=== PATIENT | male | born 1965 | race Caucasian/White ===

== ENCOUNTER 2020-02-17 23:44 | Inpatient (IN) ==
[2020-02-18] MEDS ORDERED: 0.9 % Sodium Chloride 1,000 ML IVC ONE (00:21)
[2020-02-18] MEDS ORDERED: Ondansetron 4 MG/2 ML VIAL IVP ONE (00:21)
[2020-02-18] MEDS ORDERED: Aspirin 81 MG TAB.CHEW PO STA (00:32)
[2020-02-18 00:48] LABS: Basophils % 0.3 %; Eosinophils % 0.2 %; Hematocrit 44.5 % (37.5-50.1); Hemoglobin 14.6 g/dL (12.9-16.9); Immature Granulocytes % 0.5 % (0-4); Immature Platelets 6.2 % (1.1-6.1); Lymphocytes # 1.4 K/mcL (0.6-4.6); Lymphocytes % 24.6 %; Mean Corpuscular HGB Conc 32.8 g/dL (31.6-35.5); Mean Corpuscular Hemoglobin 28.9 pg (28.0-33.3); Mean Corpuscular Volume 87.9 fL (83.0-100.0); Mean Platelet Volume 9.9 fL (9.4-12.4); Monocytes # 0.3 K/mcL (0.0-1.3); Monocytes % 5.4 %; Platelet Count 125 K/mcL (140-400); Red Blood Count 5.06 M/mcL (4.19-5.50); White Blood Count 5.7 K/mcL (4.3-11.1)
[2020-02-18 00:56] LABS: Neutrophils # 3.9 K/mcL (1.6-8.9)
[2020-02-18 01:05] LABS: Platelet Estimate Normal (Normal)
[2020-02-18 01:09] LABS: BUN/Creatinine Ratio 19 (6-26); Blood Urea Nitrogen 32 mg/dL (6-20); Calcium 9.2 mg/dL (8.6-10.3); Carbon Dioxide 20 mEq/L (23-29); Chloride 98 mEq/L (98-107); Glucose 123 mg/dL (70-105); Osmolality,Calculated 278 (280-300); Potassium 4.3 mEq/L (3.5-5.1); Sodium 130 mEq/L (136-145); Troponin I < 0.03 ng/mL (< 0.04); eGFR For African Americans 52 (> 60); eGFR For Non-African Americans 43 (> 60)
[2020-02-18] MEDS ORDERED: Azithromycin 500 MG in 0.9 % Sodium Chloride 250 ML IVPB ONE (01:33)
[2020-02-18 01:34] LABS: C-Reactive Protein 26 mg/L (Less than 10)
[2020-02-18] MEDS ORDERED: Naloxone 0.4 MG/ML INJ IVP PRN (02:03)
[2020-02-18] MEDS ORDERED: Ondansetron 4 MG/2 ML VIAL IVP PRN (02:03)
[2020-02-18] MEDS ORDERED: Acetaminophen 325 MG TABLET PO PRN (02:35)
[2020-02-18 03:26] LABS: Adenovirus Not Detected (Not Detect); Bordetella Pertussis Not Detected (Not Detect); Chlamydophila pneumoniae Not Detected (Not Detect); Coronavirus 229E Not Detected (Not Detect); Coronavirus HKU1 Not Detected (Not Detect); Coronavirus NL63 Not Detected (Not Detect); Coronavirus OC43 Not Detected (Not Detect); Human Metapneumovirus Not Detected (Not Detect); Human Rhinovirus/Enterovirus Not Detected (Not Detect); Influenza A Subtype 2009 H1 Not Detected (Not Detect); Influenza B Not Detected (Not Detect); Mycoplasma pneumoniae Not Detected (Not Detect); Parainfluenza Virus 1 Not Detected (Not Detect); Parainfluenza Virus 2 Not Detected (Not Detect); Parainfluenza Virus 3 Not Detected (Not Detect); Parainfluenza Virus 4 Not Detected (Not Detect); Respiratory Syncytial Virus Not Detected (Not Detect)
[2020-02-18] MEDS ORDERED: *HR* Dextrose 50 % in Water (Syg) 50 ML SYRINGE IVP PRN (04:52)
[2020-02-18] MEDS ORDERED: D5% in Water 1,000 ML IVC PRN (04:52)
[2020-02-18] MEDS ORDERED: Dextrose Gel 15 GM/37.5 ML TUBE PO PRN ×2 (04:52)
[2020-02-18] MEDS: Insulin LISPRO 300 UNITS/3 ML VIAL SQ SCH ×3 (08:36→17:39)
[2020-02-18] MEDS: Ipratropium 1 PUFF INHALER IH SCH ×5 (08:39→23:58)
[2020-02-18 09:37] LABS: Lactate Dehydrogenase 273 Units/L (140-271)
[2020-02-18 09:39] LABS: Calcium 8.8 mg/dL (8.6-10.3); Magnesium 1.7 mg/dL (1.6-2.6); Potassium 3.8 mEq/L (3.5-5.1)
[2020-02-18 10:05] LABS: Ferritin 1214 ng/mL (20-250)
[2020-02-18] MEDS ORDERED: Nitroglycerin 0.4 MG TAB.SUBL SL PRN (12:12)
[2020-02-18] MEDS: 0.9 % Sodium Chloride 1,000 ML IVC SCH ×2 (12:24→23:56)
[2020-02-18] MEDS: Aspirin 81 MG TAB.CHEW PO SCH (12:35)
[2020-02-18 17:57] LABS: Bilirubin,Urine Negative (Negative); Blood,Urine Moderate (Negative); Clarity,Urine Cloudy (Clear); Color,Urine Yellow (Yellow); Glucose,Urine (UA) Normal (Normal); Ketones,Urine Negative (Negative); Leukocyte Esterase,Urine Negative (Negative); Nitrite,Urine Negative (Negative); PH,Urine 5.5 pH Units (5.0-8.0); Protein,Urine 100 mg/dL (Neg-Trace); Specific Gravity,Urine 1.022 (1.010-1.025); Urobilinogen,Urine Normal (Normal)
[2020-02-18 17:58] LABS: Bacteria,Urine None Seen per hpf (None-Few); Hyaline Casts,Urine None Seen per lpf (None-Few); Squamous Epithelial Cell,Urine Many per lpf (None-Few)
[2020-02-18] MEDS: risperiDONE 1 MG TABLET PO SCH (20:08)
[2020-02-18] MEDS: Azithromycin 500 MG in 0.9 % Sodium Chloride 250 ML IVPB SCH (20:08)
[2020-02-18] MEDS: Ranolazine 500 MG TAB.ER.12H PO SCH (20:08)
[2020-02-19] MEDS: Ipratropium 1 PUFF INHALER IH SCH ×5 (03:10→21:10)
[2020-02-19 03:50] LABS: Basophils % 0.2 %
[2020-02-19 03:52] LABS: Hematocrit 37.3 % (37.5-50.1); Hemoglobin 12.3 g/dL (12.9-16.9); Immature Granulocytes % 0.6 % (0-4); Immature Platelets 5.4 % (1.1-6.1); Lymphocytes % 19.7 %; Mean Corpuscular Hemoglobin 29.2 pg (28.0-33.3); Mean Corpuscular Volume 88.6 fL (83.0-100.0); Mean Platelet Volume 9.8 fL (9.4-12.4); Monocytes # 0.2 K/mcL (0.0-1.3); Monocytes % 4.4 %; Neutrophils # 3.8 K/mcL (1.6-8.9); Platelet Count 89 K/mcL (140-400); Red Blood Count 4.21 M/mcL (4.19-5.50); Red Cell Distribution Width 14.8 % (11.5-14.5); Segmented Neutrophils % 75.1 %
[2020-02-19 04:12] LABS: Calcium 8.5 mg/dL (8.6-10.3); Potassium 3.9 mEq/L (3.5-5.1)
[2020-02-19] MEDS: Insulin LISPRO 300 UNITS/3 ML VIAL SQ SCH ×3 (08:31→15:58)
[2020-02-19] MEDS: Aspirin 81 MG TAB.CHEW PO SCH (08:31)
[2020-02-19] MEDS: Isosorbide MONOnitrate (24 HR) 30 MG TAB.ER.24H PO SCH (08:31)
[2020-02-19] MEDS: Ranolazine 500 MG TAB.ER.12H PO SCH ×2 (08:31→21:06)
[2020-02-19] MEDS ORDERED: 0.9 % Sodium Chloride 1,000 ML IVC SCH (09:23)
[2020-02-19] MEDS ORDERED: NON-FORMULARY MEDICATION 1 EACH EACH (Duloxetine Hcl [Cymbalta] 60 MG) PO SCH (18:00)
[2020-02-19] MEDS ORDERED: Mirtazapine 15 MG TABLET PO SCH (21:00)
[2020-02-19] MEDS: Azithromycin 500 MG in 0.9 % Sodium Chloride 250 ML IVPB SCH (21:06)
[2020-02-19] MEDS: risperiDONE 1 MG TABLET PO SCH (21:06)
[2020-02-20] MEDS: Ipratropium 1 PUFF INHALER IH SCH ×4 (00:17→13:33)
[2020-02-20 04:29] LABS: Basophils % 0.2 %; Hemoglobin 11.9 g/dL (12.9-16.9)
[2020-02-20 04:31] LABS: Eosinophils % 0.2 %; Hematocrit 36.3 % (37.5-50.1); Immature Granulocytes % 0.6 % (0-4); Immature Platelets 4.6 % (1.1-6.1); Lymphocytes # 0.7 K/mcL (0.6-4.6); Lymphocytes % 14.4 %; Mean Corpuscular HGB Conc 32.8 g/dL (31.6-35.5); Mean Corpuscular Hemoglobin 29.4 pg (28.0-33.3); Mean Corpuscular Volume 89.6 fL (83.0-100.0); Mean Platelet Volume 11.2 fL (9.4-12.4); Monocytes # 0.2 K/mcL (0.0-1.3); Monocytes % 3.7 %; Neutrophils # 4.1 K/mcL (1.6-8.9); Platelet Count 105 K/mcL (140-400); Red Blood Count 4.05 M/mcL (4.19-5.50); Red Cell Distribution Width 14.7 % (11.5-14.5); Segmented Neutrophils % 80.9 %; White Blood Count 5.1 K/mcL (4.3-11.1)
[2020-02-20 04:43] LABS: Platelet Estimate Decreased (Normal)
[2020-02-20 04:52] LABS: BUN/Creatinine Ratio 14 (6-26); Blood Urea Nitrogen 19 mg/dL (6-20); Calcium 8.5 mg/dL (8.6-10.3); Carbon Dioxide 21 mEq/L (23-29); Chloride 105 mEq/L (98-107); Glucose 114 mg/dL (70-105); Osmolality,Calculated 285 (280-300); Potassium 3.9 mEq/L (3.5-5.1); Sodium 136 mEq/L (136-145); eGFR For African Americans > 60 (> 60); eGFR For Non-African Americans 55 (> 60)
[2020-02-20] MEDS: Aspirin 81 MG TAB.CHEW PO SCH (08:19)
[2020-02-20] MEDS: Isosorbide MONOnitrate (24 HR) 30 MG TAB.ER.24H PO SCH (08:19)
[2020-02-20] MEDS: Ranolazine 500 MG TAB.ER.12H PO SCH (08:19)
[2020-02-20] MEDS: Insulin LISPRO 300 UNITS/3 ML VIAL SQ SCH ×2 (08:25→13:33)
[2020-02-20 15:14] VITALS: BP 107/58
[2020-02-23 06:55] LABS: Mycoplasma pneumoniae IgG 0.24 U/L (<=0.09)
== END 2020-02-20 19:35 | disposition home or self-care (01) | DRG 189 ==
LOC: 2NNU 23:44 → EMEROOARM 23:44 → 2NNU 02-18 03:03 → SUATTDRO 02-19 14:19 → 2NNU 02-20 05:31
PROVIDERS: ADMIT Student in an Organized Health Care Education/Training Program; ATTEND Family Medicine